=== PATIENT | male | born 1950 | race African-American/Black ===

== ENCOUNTER 2023-03-14 12:50 | Inpatient (IN) | payer MEDICARE ==
[2023-03-14 13:43] LABS: Hematocrit 33.4 % (38.8-50.0); Hemoglobin 11.8 g/dL (13.5-17.5); MDiff Complete? YES; Mean Corpuscular HGB CONC 35.3 g/dL (32.0-36.0); Mean Corpuscular Hemoglobin 28.4 pg (27.0-33.0); Mean Corpuscular Volume 80.3 fl (81.2-95.1); Mean Platelet Volume 11.2 fl (7.4-10.4); Platelet Count 278 10x3/uL (150-450); RBC Distribution Width 18.6 % (11.5-14.5); Red Blood Cell (RBC) Count 4.16 10x6/uL (4.32-5.72); White Blood Cell (WBC) Count 21.4 10x3/uL (3.5-10.5)
[2023-03-14 14:01] LABS: ALT (SGPT) 14 U/L (8-55); AST (SGOT) 28 U/L (5-34); Albumin 3.4 g/dL (3.4-4.8); Alkaline Phosphatase 136 U/L (40-110); Anion Gap 23 mmol/L (10-20); BUN (Urea Nitrogen) 97 mg/dL (8.4-25.7); Bilirubin, Total 0.4 mg/dL (0.2-1.2); Calc. Creatinine Clearance 0 mL/min (70-130); Calcium 9.8 mg/dL (7.8-10.44); Carbon Dioxide 26 mmol/L (23-31); Chloride 89 mmol/L (98-107); Estimated GFR 7; Globulin 4.2 g/dL (2.4-3.5); Glucose 150 mg/dL (83-110); Protein, Total 7.6 g/dL (5.8-8.1); Sodium 134 mmol/L (136-145)
[2023-03-14 14:02] LABS: Acetaminophen Less than 10 mcg/mL (10.0-30.0); Alcohol Less than 10.0 mg/dL (Less than 10); Lipase 31 U/L (8-78); Salicylate Less than 8.0 mg/dL (15.0-30.0)
[2023-03-14] MEDS ORDERED: Piperacillin/Tazobactam 4.5 GM VIAL ONE (14:06)
[2023-03-14 14:08] LABS: SARS-CoV-2 NAA Rapid Test Not Detected (NotDetected)
[2023-03-14] MEDS ORDERED: Acetaminophen 325 MG TAB PO PRN (14:24)
[2023-03-14] MEDS ORDERED: HYDROcodone/Acetaminophen 5/325 mg Tablet PO PRN (14:24)
[2023-03-14] MEDS ORDERED: Ondansetron PF 4 MG/2 ML Vial IVP PRN (14:24)
[2023-03-14] MEDS ORDERED: hydrALAZINE 20 MG/ML VIAL SLOW IVP PRN (14:25)
[2023-03-14] MEDS ORDERED: Vancomycin 1.5 GRAM/300 ML BAG 1.5 GM in Premix 1 BAG IVPB SCH (14:30)
[2023-03-14 14:32] LABS: Bilirubin Neg (Negative); Blood, Urine 250 (Negative); Glucose, Urine (Dipstick) Normal (Negative); Ketone, Urine Negative (Negative); Leukocyte 500 (Negative); Nitrite Negative (Negative); Protein, Urine (Dipstick) 100 mg/dl (Neg-Trace); Specific Gravity, Urine 1.015 (1.005-1.030); Urobilinogen Normal mg/dL (Less than 2)
[2023-03-14 14:47] LABS: Band 15 % (5-11); Lymphocytes 7 % (21-51); Monocytes 5 % (0-10); Neutrophil 72 % (42-75); Nucleated RBC (Manual Ct) 1 % (0); Reactive Lymphocytes 1 % (0-10)
[2023-03-14 14:51] LABS: Target Cells SLIGHT = 2-5 cells (100X) (0-1/hpf)
[2023-03-14 14:52] LABS: Large Platelets SLIGHT (None Seen); Platelet Adequacy Comment Appears Adequate
[2023-03-14 14:53] LABS: Reflex for Review?? YES
[2023-03-14] MEDS ORDERED: Acetaminophen 500 MG TAB ONE (15:01)
[2023-03-14] MEDS ORDERED: Acetaminophen 325 MG TAB PER TUBE PRN (15:28)
[2023-03-14] MEDS ORDERED: HumaLOG 300 UNITS/3 ML VIAL SC PRN (15:30)
[2023-03-14] MEDS ORDERED: Dextrose 5% in Water 1,000 ML IV PRN (15:30)
[2023-03-14 15:43] LABS: Clarity Turbid (Clear)
[2023-03-14 15:51] LABS: Amphetamine Not Detected (NotDetected); Barbiturates Screen Not Detected (NotDetected); Benzodiazepine Screen Not Detected (NotDetected); Cocaine Metabolite Screen Not Detected (NotDetected); Methadone Not Detected (NotDetected); Methamphetamine Not Detected (NotDetected); Opiate Screen Not Detected (NotDetected); Oxycodone Screen Not Detected (NotDetected); Phencyclidine (PCP) Not Detected (NotDetected); THC/Cannabinoid Screen Not Detected (NotDetected); Tricyclic Screen Not Detected (NotDetected)
[2023-03-14] MEDS ORDERED: SEVELAMER CARBONATE PER TUBE SCH (17:00)
[2023-03-14 18:01] LABS: CAUTI Indications for Culture Alt mental st,lethar; Squamous Epithelial 0-3 HPF (0-3); WBC/HPF Greater than 50 HPF (0-3)
[2023-03-14 18:02] LABS: Bacteria/HPF 4+ HPF (None Seen); Transitional Epithelial 0-3 HPF (None Seen); Urine Culture Reflex Yes Yes
[2023-03-14 20:04] VITALS: BMI 24.0
[2023-03-14] MEDS: Piperacillin/Tazobactam 3.375 GM in Sodium Chloride 0.9% 100 ML IVPB SCH (20:51)
[2023-03-14] MEDS: Famotidine 20 MG TAB PO SCH ×2 (22:46→23:49)
[2023-03-14] MEDS: Atorvastatin Calcium 40 MG TAB PER TUBE SCH ×2 (22:46→23:49)
[2023-03-15 04:53] LABS: #Basophils 0.1 10x3/uL (0.0-0.2); #Eosinphils 0.4 10x3/uL (0.0-0.5); #Neutrophils 17.6 10x3/uL (1.5-8.4); %Basophils 0.5 % (0.0-2.0); %Eosinophils 1.7 % (0.0-6.0); %Lymphocytes 8.5 % (18.0-47.0); %Monocytes 4.7 % (0.0-10.0); %Neutrophils 84.3 % (40.0-75.0); Hematocrit 30.5 % (38.8-50.0); Hemoglobin 10.6 g/dL (13.5-17.5); Mean Corpuscular HGB CONC 34.8 g/dL (32.0-36.0); Mean Corpuscular Hemoglobin 28.3 pg (27.0-33.0); Mean Corpuscular Volume 81.3 fl (81.2-95.1); Mean Platelet Volume 12.1 fl (7.4-10.4); Platelet Count 266 10x3/uL (150-450); RBC Distribution Width 18.6 % (11.5-14.5); Red Blood Cell (RBC) Count 3.75 10x6/uL (4.32-5.72); White Blood Cell (WBC) Count 20.9 10x3/uL (3.5-10.5)
[2023-03-15 05:30] LABS: Albumin 3.1 g/dL (3.4-4.8); Anion Gap 24 mmol/L (10-20); BUN (Urea Nitrogen) 104 mg/dL (8.4-25.7); BUN/Creatinine Ratio 12.32; Calc. Creatinine Clearance 9 mL/min (70-130); Calcium 9.6 mg/dL (7.8-10.44); Carbon Dioxide 23 mmol/L (23-31); Cardiac Risk 3.9 (Less than 4.5); Chloride 91 mmol/L (98-107); Estimated GFR 6; Glucose 70 mg/dL (83-110); HDL Cholesterol 38 mg/dL (>60 Neg Risk); LDL Cholesterol, Calculated 99 mg/dL; Phosphorus 4.3 mg/dL (2.3-4.7); Potassium 4.2 mmol/L (3.5-5.1); Sodium 134 mmol/L (136-145); Triglycerides 65 mg/dL (Less than 150)
[2023-03-15 05:36] LABS: Cholesterol 150 mg/dl (< 200 Desired)
[2023-03-15] MEDS: Piperacillin/Tazobactam 3.375 GM in Sodium Chloride 0.9% 100 ML IVPB SCH ×3 (06:56→22:57)
[2023-03-15] MEDS: Dextrose 50% Abboject 50 ML SYRINGE SLOW IVP PRN ×2 (06:57→16:08)
[2023-03-15] MEDS ORDERED: Vancomycin Diaylsis Sliding Scale (Wt 71-99) FS SCH (07:45)
[2023-03-15 08:30] LABS: Vancomycin, Random 25.7 ug/mL (See Comment)
[2023-03-15] MEDS: Aspirin 81 mg Enteric Coated Tablet PER TUBE SCH (08:43)
[2023-03-15] MEDS: Folic Acid/Vit B Comp W-C PER TUBE SCH (08:43)
[2023-03-15] MEDS ORDERED: Aspirin 81 mg Enteric Coated Tablet PO SCH (09:00)
[2023-03-15] MEDS ORDERED: Heparin 10,000 UNITS/ 10 ML VIAL SLOW IVP PRN (10:59)
[2023-03-15] MEDS: Famotidine 20 MG TAB PO SCH (22:18)
[2023-03-15] MEDS: Atorvastatin Calcium 40 MG TAB PER TUBE SCH (22:18)
[2023-03-16 05:24] LABS: #Basophils 0.1 10x3/uL (0.0-0.2); #Eosinphils 0.4 10x3/uL (0.0-0.5); #Monocytes 0.6 10x3/uL (0.0-1.1); #Neutrophils 4.3 10x3/uL (1.5-8.4); %Basophils 1.9 % (0.0-2.0); %Eosinophils 6.6 % (0.0-6.0); %Lymphocytes 13.3 % (18.0-47.0); %Monocytes 9.9 % (0.0-10.0); Hematocrit 29.4 % (38.8-50.0); Hemoglobin 10.4 g/dL (13.5-17.5); Mean Corpuscular HGB CONC 35.4 g/dL (32.0-36.0); Mean Corpuscular Hemoglobin 28.7 pg (27.0-33.0); Mean Platelet Volume 11.7 fl (7.4-10.4); Platelet Count 272 10x3/uL (150-450); RBC Distribution Width 18.2 % (11.5-14.5); Red Blood Cell (RBC) Count 3.63 10x6/uL (4.32-5.72); White Blood Cell (WBC) Count 6.4 10x3/uL (3.5-10.5)
[2023-03-16 05:40] LABS: Anion Gap 18 mmol/L (10-20); BUN (Urea Nitrogen) 47 mg/dL (8.4-25.7); Calc. Creatinine Clearance 14 mL/min (70-130); Calcium 9.3 mg/dL (7.8-10.44); Carbon Dioxide 26 mmol/L (23-31); Chloride 97 mmol/L (98-107); Estimated GFR 11; Glucose 155 mg/dL (83-110); Potassium 3.6 mmol/L (3.5-5.1); Sodium 137 mmol/L (136-145)
[2023-03-16 07:27] LABS: Vancomycin, Random 17.2 ug/mL (See Comment)
[2023-03-16] MEDS: Aspirin 81 mg Enteric Coated Tablet PER TUBE SCH (08:29)
[2023-03-16] MEDS: Folic Acid/Vit B Comp W-C PER TUBE SCH (08:29)
[2023-03-16] MEDS ORDERED: Heparin 10,000 UNITS/ 10 ML VIAL SLOW IVP PRN (09:45)
[2023-03-16] MEDS: Piperacillin/Tazobactam 3.375 GM in Sodium Chloride 0.9% 100 ML IVPB SCH ×2 (15:46→23:02)
[2023-03-16] MEDS ORDERED: Vancomycin HCl 750 MG in Sodium Chloride 0.9% 250 ML 250 ML IVPB SCH (17:00)
[2023-03-16] MEDS: Atorvastatin Calcium 40 MG TAB PER TUBE SCH (20:36)
[2023-03-16] MEDS: Famotidine 20 MG TAB PO SCH (20:36)
[2023-03-16] MEDS: Dextrose 50% Abboject 50 ML SYRINGE SLOW IVP PRN (20:36)
[2023-03-17] MEDS: Glucagon 1 MG/ML KIT IM PRN ×2 (02:32→06:56)
[2023-03-17 04:22] LABS: Hematocrit 30.7 % (38.8-50.0); Hemoglobin 10.9 g/dL (13.5-17.5); Mean Corpuscular HGB CONC 35.5 g/dL (32.0-36.0); Mean Corpuscular Volume 81.6 fl (81.2-95.1); Mean Platelet Volume 11.4 fl (7.4-10.4); Platelet Count 287 10x3/uL (150-450); RBC Distribution Width 18.6 % (11.5-14.5); Red Blood Cell (RBC) Count 3.76 10x6/uL (4.32-5.72)
[2023-03-17 04:25] LABS: Anion Gap 15 mmol/L (10-20); BUN (Urea Nitrogen) 19 mg/dL (8.4-25.7); Calc. Creatinine Clearance 22 mL/min (70-130); Calcium 9.5 mg/dL (7.8-10.44); Carbon Dioxide 26 mmol/L (23-31); Chloride 100 mmol/L (98-107); Estimated GFR 20; Glucose 141 mg/dL (83-110); Potassium 3.4 mmol/L (3.5-5.1); Sodium 138 mmol/L (136-145)
[2023-03-17 04:52] LABS: Large Platelets SLIGHT (None Seen); Microcytosis SLIGHT = 6-15 cells (100X) (0-5/hpf); Platelet Adequacy Comment Appears Adequate
[2023-03-17 04:54] LABS: Band 6 % (5-11); Eosinophils 2 % (0-10); Lymphocytes 22 % (21-51); Monocytes 12 % (0-10); Nucleated RBC (Manual Ct) 1 % (0)
[2023-03-17 05:06] LABS: MDiff Complete? YES
[2023-03-17 07:58] VITALS: TEMP 97.6
[2023-03-17] MEDS: Aspirin 81 mg Enteric Coated Tablet PER TUBE SCH (10:02)
[2023-03-17] MEDS: Folic Acid/Vit B Comp W-C PER TUBE SCH (10:03)
[2023-03-17] MEDS: Dextrose 50% Abboject 50 ML SYRINGE SLOW IVP PRN (10:24)
[2023-03-17] MEDS: Piperacillin/Tazobactam 3.375 GM in Sodium Chloride 0.9% 100 ML IVPB SCH (10:24)
[2023-03-17 12:49] VITALS: BP 131/69
== END 2023-03-17 14:20 | disposition home or self-care (01) | DRG 871 ==
LOC: CSHERS 12:50 → SUATTDRO 12:50 → CSHTELE 14:23
PROVIDERS: ADMIT Internal Medicine; ATTEND Hospitalist
PROC: 3E03329 Introduction of Other Anti-infective into Peripheral Vein, Percutaneous Approach (ICD-10-PCS; principal; 2023-03-14)
PROC: 0T9B70Z Drainage of Bladder with Drainage Device, Via Natural or Artificial Opening (ICD-10-PCS; 2023-03-14)
PROC: 5A1D70Z Performance of Urinary Filtration, Intermittent, Less than 6 Hours Per Day (ICD-10-PCS; 2023-03-15)
PROC: 5A1D70Z Performance of Urinary Filtration, Intermittent, Less than 6 Hours Per Day (ICD-10-PCS; 2023-03-16)
DX: A41.9 Sepsis, unspecified organism (principal); G93.41 Metabolic encephalopathy; N18.6 End stage renal disease; J69.0 Pneumonitis due to inhalation of food and vomit; J18.9 Pneumonia, unspecified organism; I50.32 Chronic diastolic (congestive) heart failure; I13.2 Hypertensive heart and chronic kidney disease with heart failure and with stage 5 chronic kidney disease, or end stage renal disease; I69.351 Hemiplegia and hemiparesis following cerebral infarction affecting right dominant side; R65.20 Severe sepsis without septic shock; E11.22 Type 2 diabetes mellitus with diabetic chronic kidney disease; R82.81 Pyuria; R31.0 Gross hematuria; D63.1 Anemia in chronic kidney disease; I69.320 Aphasia following cerebral infarction; I69.391 Dysphagia following cerebral infarction; N28.1 Cyst of kidney, acquired; R13.12 Dysphagia, oropharyngeal phase; E87.6 Hypokalemia; Z11.52 Encounter for screening for COVID-19; Z88.8 Allergy status to other drugs, medicaments and biological substances; Z99.2 Dependence on renal dialysis; Z98.890 Other specified postprocedural states; Z87.891 Personal history of nicotine dependence; Z79.899 Other long term (current) drug therapy; Z79.82 Long term (current) use of aspirin; Z74.01 Bed confinement status
CPT/HCPCS: 36415; 36416; 51701; 70450; 70551; 71045; 80048; 80053; 80061; 80069; 80202; 80306; 80307; 81001; 82140; 83605; 83690; 84443; 85025; 85060; 87040; 87086; 90935; 93306; 96365; 96375; G0257; J1611; J1644; J2543; J3370; J3490; J7050; J7999